=== PATIENT | male | born 1995 | race Caucasian/White ===

== ENCOUNTER 2016-10-05 17:06 | Emergency (ER) | payer OTHER ==
[~2016-10-05] VITALS: Ht 175.3 cm; Wt 76.0 kg
[~2016-10-05 17:06] MED LIST: AZIT250T6; PRED20TA
[2016-10-05 17:09] VITALS: Ht 175.3 cm; Wt 76.0 kg
[2016-10-05] MEDS ORDERED: IBUPROFEN 200 MG TAB PO ONE (19:00)
--- NOTE | 2016-10-05 19:49 | RADRPT ---
PROCEDURE: Left knee x-ray CLINICAL INDICATION: Left knee pain TECHNIQUE: AP, lateral and oblique views of the left knee were obtained. COMPARISON: None FINDINGS: There is normal mineralization. No acute fracture or dislocation is seen. There are no significant degenerative changes. There is no joint effusion. There is no significant soft tissue swelling. IMPRESSION: Normal x-ray of the left knee. RPTAT: [facility] Physician Misha Date Time Electronically viewed and signed by Shawn Baltazar Physician on 10/05/2016 19:49 RS/
[2016-10-05] MEDS ORDERED: IBUP-1542 PO (19:54)
--- NOTE | 2016-10-05 20:09 | ERD ---
ER Documentation Chief Complaint Date/Time DATE: 10/05/16 TIME: 20:07 Chief Complaint dislocated left knee, popped it back in, wants to make sure it's in HPI This is a 20-year-old male presents to the emergency department complaining of left knee pain status post having his left knee pop out and back in a couple hours prior to being seen. Patient denies any restricted range of motion, he states he is able to ambulate. Patient's parents request a x-ray. He rates the pain moderate in severity. Denies giving any medications for this ROS All systems reviewed and are negative except as per history of present illness. 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) Hx Alcohol Use: No Hx Substance Use: No Hx Tobacco Use: No Smoking Status: Never smoker Physical Exam Vitals Vital Signs Date Time Temp Pulse Resp B/P Pulse Ox O2 Delivery O2 Flow Rate FiO2 10/05/16 17:09 98.0 87 18 130/75 98 Physical Exam General: WD/WN, in no apparent distress, non-toxic appearing HENT: NC/AT Eyes: Conjunctiva normal Neck: Supple Pulm: Clear to auscultation, normal labored breathing; no wheezing/rales/ rhonchi heard CV: Good capillary refill GI: Non-distended, no guarding Back: No masses Ext: Tenderness palpation over the left knee, full range of motion, limp with ambulation Neuro: Moves on all fours Skin: intact Psych: Normal mood Results 24 hrs Current Medications Medications (Trade) Dose Ordered Sig/[place] Route PRN Reason Start Time Stop Time Status Last Admin Dose Admin Ibuprofen (Motrin) 400 mg ONCE ONCE PO 10/05/16 19:00 10/05/16 19:01 DC 10/05/16 18:58 Procedures/MDM This is a 20-year-old male presents to the emergency department complaining of left knee pain status post possible knee dislocation and reduction couple hours prior to being seen. This is likely due to strain. There was no evidence of fracture dislocation. Discussed to follow-up with an orthopedist for further evaluation management. X-ray was did not show any fracture dislocation. Prescription for ibuprofen was provided. Discussed return to the ER for any worsening symptoms. Patient is hematuria stable and neurovascular intact to be discharged home. Father understood and agreed plan Departure Diagnosis: Primary Impression: Knee strain Condition: Stable Patient Instructions: Reducing Knee Pain and Swelling Additional Instructions: Visite a stormy maria para un EXAMEN.Regrese a estas instalaciones si no se mejora edmund esperbamos o edmund le dijimos. [place] toda la medicina libra y edmund se le indic. VALERY SHEN PA-C Oct 05, 2016 20:09
[2016-10-05 20:13] VITALS: BP 108/56; PULSE 60; RESP 24; TEMP 98.6
== END 2016-10-05 20:12 | disposition home or self-care (01) ==
LOC: FTE 17:06
DX: S86.812A Strain of other muscle(s) and tendon(s) at lower leg level, left leg, initial encounter (principal); X50.9XXA Other and unspecified overexertion or strenuous movements or postures, initial encounter; Y92.9 Unspecified place or not applicable
CPT/HCPCS: 73562; Z7502; Z7610

== ENCOUNTER 2018-10-08 10:01 | Emergency (ER) | payer SELFPAY ==
[~2018-10-08] VITALS: Ht 167.6 cm; Wt 78.9 kg
[~2018-10-08 10:01] MED LIST changes: +AZIT250T13; -AZIT250T6; +IBUP-1542 PO
[2018-10-08 10:04] VITALS: BP 131/85; PULSE 66; RESP 18; Ht 167.6 cm; Wt 78.9 kg
== END 2018-10-08 10:28 | disposition left against medical advice (07) ==
LOC: FTE 10:01
DX: Z53.21 Procedure and treatment not carried out due to patient leaving prior to being seen by health care provider (principal)